=== PATIENT | male | born 1975 | race Caucasian/White ===

== ENCOUNTER 2016-12-24 10:24 | Emergency (ER) ==
[2016-12-24] MEDS ORDERED: ZOFRAN IV ONE (10:29)
[2016-12-24] MEDS ORDERED: MORPHINE IV ONE ×3 (10:29→13:51)
[2016-12-24] MEDS ORDERED: NS 1,000 ML IV ONE (10:29)
[2016-12-24 10:46] LABS: MANUAL DIFF NEEDED? NO
[2016-12-24 10:49] LABS: BASO% 0.6 % (0.0-0.8); EOS# 0.69 X1000 (0.0-0.7); EOS% 10.5 % (0.0-10.0); HEMATOCRIT 45.3 % (42.0-52.0); HEMOGLOBIN 15.5 g/dL (14.0-18.0); LYMPH# 2.09 X1000 (1.2-3.4); LYMPH% 31.9 % (20.5-51.1); MCH 29.4 PG (27-31); MCHC 34.2 g/dL (33-37); MONO# 0.84 X1000 (0.11-0.59); MONO% 12.8 % (1.7-9.3); MPV 10.4 FL (7.4-10.4); NEUT% 44.2 % (42.2-75.2); PLT 231 X1000 (130-400); RBC 5.27 XMIL (4.7-6.1)
[2016-12-24 11:05] LABS: AGAP 11; ALBUMIN 4.1 g/dL (3.5-5.0); ALKALINE PHOSPHATASE 82 U/L (32-122); AMYLASE 71 U/L (20-200); BUN 12 mg/dL (8-22); CHLORIDE 100 mmol/L (98-107); COSMO 273; GOT 24 U/L (10-34); GPT 31 U/L (10-44); LIPASE 56 U/L (13-60); POTASSIUM 3.8 mmol/L (3.5-5.1); SODIUM 137 mmol/L (136-145); TCO2 26 mmol/L (25-35); TOTAL BILIRUBIN 0.37 mg/dL (0.20-1.00); TOTAL PROTEIN 6.6 g/dL (6.3-8.3)
[2016-12-24 11:08] LABS: URINE CULTURE NEEDED? NO; URINE MICRO REVIEW NEEDED? NO; URINE SOURCE CLEAN CATCH
--- NOTE | 2016-12-24 11:10 | PROVIDER DOCUMENTATION ---
HPI-Abdominal Pain/GI Problem - General Chief Complaint: Abdominal Pain Stated Complaint: ABD PAIN Time Seen by Provider: 12/24/16 10:25 Source: patient Allergies/Adverse Reactions: Patient Allergies Allergy/AdvReac Type Severity Reaction Status Date / Time No Known Allergies Allergy Verified 12/24/16 11:16 Home Medications: Home Medication List Medication Instructions Recorded Confirmed Last Taken Type Amlodipine Besylate [Norvasc] 12/24/16 12/24/16 History Ciprofloxacin HCl [Cipro] 500 mg PO BID #20 tablet 12/24/16 Unknown Rx Esomeprazole [Nexium] 40 mg PO DAILY 12/24/16 12/24/16 12/24/16 History Hydrocodone/APAP 7.5 mg/325 mg 1 each PO Q6H PRN PRN #10 tablet 12/24/16 Unknown Rx [Oldsmar-7.5] Loratadine [Claritin] 10 mg PO DAILY 12/24/16 12/24/16 12/24/16 History Metronidazole [Flagyl] 500 mg PO BID #20 tablet 12/24/16 Unknown Rx Montelukast Sodium [Singulair] 10 mg PO DAILY 12/24/16 12/24/16 12/24/16 History Promethazine [Phenergan] 25 mg PO Q6H PRN PRN #10 tablet 12/24/16 Unknown Rx Valsartan/Hydrochlorothiazide 320 mg PO DAILY 12/24/16 12/24/16 12/24/16 History [Valsartan-Hctz 320-25 mg Tab] - History of Present Illness-ABD Nature of Presenting Problems: Pt is a 41 y/o M c chief complaint of diffuse abd pain, nausea, and bloody diarrhea x 3 days that has become progressively worse. Pt has a h/o diverticular dz c occasional flare ups. 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 Pt denies any fever/chills/vomiting. On arrival, pt is in moderate distress and guarding his abd. Pt also has a h/o HTN. Review of Systems - Adult - REVIEW OF SYSTEMS - ADULT Constitutional: reports: no symptoms reported. denies: chills, fatique Eyes: reports: no symptoms reported. denies: blurred vision, double vision Ears, Nose, Mouth & Throat: reports: no symptoms reported. denies: ear pain, nose pain, throat pain Cardiovascular: reports: no symptoms reported. denies: chest pain, orthopnea Respiratory: reports: no symptoms reported. denies: cough, shortness of breath , wheezing Gastrointestinal: reports: abdominal pain, diarrhea, nausea, rectal bleeding. denies: vomiting Genitourinary: reports: no symptoms reported. denies: dysuria, flank pain Musculoskeletal: reports: no symptoms reported. denies: joint pain, joint swelling Integumentary: reports: no symptoms reported. denies: itching, rash Neurological: reports: no symptoms reported. denies: numbness, paresthesia Psychiatric: reports: no symptoms reported. denies: anxiety, emotional problems Endocrine: reports: no symptoms reported. denies: cold intolerance, heat intolerance Hematologic/Lymphatic: reports: no symptoms reported. denies: blood clots, low blood count Allergic/Immunologic: reports: no symptoms reported. denies: allergic reactions , eczema All Other Systems: Reviewed and Negative Past History - Adult - PAST MEDICAL HISTORY-ADULT Review of Records: reports: Old Records Reviewed, Nursing Assessment Review, Medications Reviewed, Social history reviewed & non-contributory. Major Childhood Illnesses: reports: denies history Cardiovascular: reports: HTN Respiratory: reports: denies history Gastrointestinal: reports: colitis, diverticulosis Obstetrical/Gynecological: reports: denies history Genitourinary: reports: denies history Musculoskeletal: reports: denies history Neurological: reports: denies history Endocrine/Immune: reports: denies history Other Conditions: reports: denies history - PRIOR SURGERIES/PROCEDURES Surgical/Procedure History: reports: none - IMMUNIZATION STATUS Childhood Immunizations: See Nurse Assessment Flu Vaccine: See Nurse Assessment - FAMILY HISTORY Family History: reviewed, not pertinent - SOCIAL HISTORY Smoking: denies Substance Use: none/never Alcohol Use Frequency: never Living Situation: family Physical Exam-General - PHYSICAL EXAM-ADULT Initial Vital Signs Reviewed: Yes - CONSTITUTIONAL General Appearance: appears well, alert, no apparent distress - EYES Eyes: PERRL/EOMI, pink conjunctivae - HEAD, EARS, NOSE, MOUTH & THROAT HENMT: normocephalic/atraumatic, moist mucous membranes, normal ENT inspection - NECK Neck: non-tender, full range of motion, supple - RESPIRATORY Respiratory: lungs clear, normal breath sounds - CARDIOVASCULAR Cardiovascular: normal peripheral pulses, regular rate, rhythm, no edema - GASTROINTESTINAL (ABDOMEN) Abdominal Exam: abnormal bowel sounds (hypoactive), distended, guarding, rebound , tenderness - LYMPHATIC Lymphatic: no adenopathy - MUSCULOSKELETAL Back Exam: normal inspection Extremity: normal range of motion, non-tender, normal gait - SKIN Integumentary: normal color, normal turgor, warm/dry - NEUROLOGIC Neurologic: grossly normal, no motor/sensory deficits - PSYCHIATRIC Psych/Mental Status: normal mood/affect, normal thought content, normal thought process, oriented x 3 Progress - PLAN OF CARE/RESULTS Progress/Plan/Lab Results: Orders Category Date Time Status Saline Loc DIRECTED Care 12/24/16 10:27 Active NPO Diet 12/24/16 10:[address] ABD/PELVIS W/ IV CONT ONLY [CT] Stat Exams 12/24/16 10:28 Taken AMYLASE [CHEM] Stat Lab 12/24/16 10:39 Completed CBC WITH ELECTRONIC DIFF [HEME] Stat Lab 12/24/16 10:39 Completed COMPREHENSIVE METABOLIC PANEL [CHEM] Stat Lab 12/24/16 10:39 Completed LIPASE [CHEM] Stat Lab 12/24/16 10:39 Completed URINALYSIS W/POSS RFLX CULT [URINALYSIS] Stat Lab 12/24/16 10:55 Completed 0.9% Sodium Chloride Inj [Ns] 1,000 ml Med 12/24/16 10:29 Discontinued IV 999 mls/hr Levofloxacin 750 mg/D5w [Levaquin 750 mg/D5w] 150 ml Med 12/24/16 13:01 Active IV NOW Metronidazole 500 mg/Ns [Flagyl 500 mg/Ns] 100 ml Med 12/24/16 13:01 Active IV NOW Morphine Med 12/24/16 10:29 Discontinued 4 mg IV NOW ONE Morphine Med 12/24/16 11:06 Discontinued 4 mg IV NOW ONE Ondansetron [Zofran] Med 12/24/16 10:29 Discontinued 4 mg IV NOW ONE Laboratory Tests 12/24/16 12/24/16 12/24/16 10:39 10:39 10:55 WBC 6.55 RBC 5.27 Hgb 15.5 Hct 45.3 MCV 86.0 MCH 29.4 MCHC 34.2 RDW Std Deviation 13.3 Plt Count 231 MPV 10.4 Immature Gran % (Auto) 0.0 Neut % (Auto) 44.2 Lymph % (Auto) 31.9 Nash % (Auto) 12.8 H Eos % (Auto) 10.5 H Baso % (Auto) 0.6 Immature Gran # (Auto) 0.00 Neut # (Auto) 2.89 Lymph # (Auto) 2.09 Nash # (Auto) 0.84 H Eos # (Auto) 0.69 Baso # (Auto) 0.04 Sodium 137 Potassium 3.8 Chloride 100 Carbon Dioxide 26 Anion Gap 11 BUN 12 Creatinine 0.8 Estimated GFR/1.73 m2 > 60 BUN/Creatinine Ratio 15 Glucose 91 Calculated Osmolality 273 Calcium 8.0 L Total Bilirubin 0.37 AST 24 ALT 31 Alkaline Phosphatase 82 Total Protein 6.6 Albumin 4.1 Globulin 2.5 Albumin/Globulin Ratio 1.6 Amylase 71 Lipase 56 Urine Source CLEAN CATCH Urine Color STRAW Urine Turbidity CLEAR Urine pH 7.5 Ur Specific Makanda 1.007 Urine Protein NEGATIVE Ur Glucose (Stick) NEGATIVE Ur Ketones (Stick) NEGATIVE Urine Blood NEGATIVE Urine Nitrite NEGATIVE Urine Bilirubin NEGATIVE Urobilinogen Dipstick NORMAL Urine Leukocytes NEGATIVE Urine WBC (Auto) <10 Urine RBC (Auto) <10 U Epithel Cells (Auto) <10 Urine Bacteria (Auto) NEGATIVE Vital Signs - 24 hr 12/24/16 10:33 Temperature 97.6 F Pulse Rate 79 Respiratory 18 Rate Blood Pressure 145/71 O2 Sat by Pulse 100 Oximetry - REASSESSMENT Reassessment #1 Time Reassessed: 13:10 (Pt feeling much improved. Discussed labs and imaging studies. Pt will follow up with Dr. Mcnulty (GI) this week. ) - CT/MRI 1 CT Study: Abdomen, Pelvis Impression: Abnormal (Sigmoid colonic diverticulitis c no sign of perforation - Dr. Cochran) - CONSULTS/PCP/HOSPITALIST Notification #1 *Consult/PCP/Hospitalist*: Dr. Mcnulty (GI) Reason/Comments: Agreed c plan of care. Will see pt this week. Departure - Departure Time of Disposition Order: 13:10 DIAGNOSIS: Diverticulitis Qualifiers: Diverticulitis site: large intestine Diverticulitis bleeding: with bleeding Diverticulitis complication: without perforation or abscess Qualified Code(s): K57.33 - Diverticulitis of large intestine without perforation or abscess with bleeding Disposition: HOME 01 Certified Medical Emergency: Emergent Condition: Stable Additional Instructions: ED Follow Up Instructions: You have been treated by a care provider in the Emergency Department. These instructions are being provided to you so you can have an understanding of how to care for yourself upon discharge. Upon discharge from the Emergency Department, you are responsible for making arrangements for follow-up care by a physician of your choice. Take all prescribed medications as directed. Return to the Emergency Department immediately for any new or worsening symptoms. You may call the Physician Referral phone number at [phone] to obtain a list of Physicians who are taking new patients. Prescriptions: Ciprofloxacin HCl [Cipro] 500 mg PO BID #20 tablet Metronidazole [Flagyl] 500 mg PO BID #20 tablet Hydrocodone/APAP 7.5 mg/325 mg [Oldsmar-7.5] 1 each PO Q6H PRN PRN #10 tablet PRN Reason: Pain Promethazine [Phenergan] 25 mg PO Q6H PRN PRN #10 tablet PRN Reason: Nausea Referrals: Dennis Granger MD [Primary Care Provider] - Satrunino Mcnulty MD [STAFF PHYSICIAN] - Forms: Return to School/Parent Work Instructions: Diverticulitis Attestation - Physician/ MILAD[facility] Attestation Patient care was provided by Advanced Practice Provider:: Yes Advanced Practice Provider:: Cesar Durant Advanced Practice Provider documentation review:: The Mid-level provider documentation, treatment plan and medical decision making was reviewed by the physician who agrees with all treatment and medical decision making by the MLP.
[2016-12-24 11:20] LABS: BILIRUBIN URINE NEGATIVE (NEGATIVE); BLOOD URINE NEGATIVE (NEGATIVE); COLOR STRAW; GLUCOSE URINE NEGATIVE (NEGATIVE); LEUKOCYTES URINE NEGATIVE (NEGATIVE); NITRITE URINE NEGATIVE (NEGATIVE); PH URINE 7.5; PROTEIN URINE NEGATIVE (NEGATIVE); SP GRAVITY URINE 1.007; TURBIDITY URINE CLEAR (CLEAR); UROBILINOGEN URINE NORMAL (NORMAL)
[2016-12-24 11:21] LABS: UR EPITHELIAL CELLS <10 /HPF (<10); URINE BACTERIA NEGATIVE /HPF; URINE RBC <10 /HPF (<10); URINE WBC <10 /HPF (<10)
[2016-12-24] MEDS ORDERED: LEVAQUIN 750 MG/D5W 150 ML IV ONE (13:01)
[2016-12-24] MEDS ORDERED: FLAGYL 500 MG/NS 100 ML IV ONE (13:01)
--- NOTE | 2016-12-24 13:16 | Diag Imaging Result Document ---
PROCEDURE NAME: CT ABD/PELVIS W/ IV CONT ONLY - 12/24/2016 CT ABDOMEN AND PELVIS WITH IV CONTRAST: COMPARISON: 11/12/2015. FINDINGS: There are several diverticula mainly at the proximal aspect of the sigmoid colon. In this location there is focal colonic wall thickening and mild pericolonic stranding suggesting diverticulitis. There are shotty mildly prominent lymph nodes adjacent to this segment that are probably reactive. Correlate clinically and consider colonoscopy if there is no improvement after treatment. There is trace fluid in the pelvis. The appendix is normal. There is no evidence of bowel obstruction. No free abdominal gas or abscess can be identified. The remainder of the solid viscera of the abdomen and pelvis and the remainder of the GI tract is essentially unremarkable. IMPRESSION: Findings compatible with sigmoid colonic diverticulitis. Please see the above discussion.
[2016-12-24] MEDS ORDERED: SODIUM CHLORIDE 0.9% 10 ML ONE (14:15)
[2016-12-24 15:08] VITALS: BP 139/84
== END 2016-12-24 15:38 | disposition home or self-care (01) ==
LOC: ED 10:24
DX: K57.33 Diverticulitis of large intestine without perforation or abscess with bleeding (principal); R10.9 Unspecified abdominal pain; R11.0 Nausea; R19.7 Diarrhea, unspecified; K62.5 Hemorrhage of anus and rectum; I10 Essential (primary) hypertension; Z79.899 Other long term (current) drug therapy; Z79.51 Long term (current) use of inhaled steroids
CPT/HCPCS: 74177; 80053; 81001; 82150; 83690; 85025; 96365; 96368; 96375; 96376; J2270; J2405; J7030; Q9967; S0030